=== PATIENT | male | born 1955 ===

== ENCOUNTER → 2022-09-22 10:43 | Outpatient (CLI) | payer MEDICARE, OTHER, SELFPAY ==
--- NOTE | 2022-09-22 | DI.US.S_ITS ---
PROCEDURE: US PERIPH VENOUS LOW EXTREM RT INDICATIONS: SWELLING TECHNIQUE: Real-time imaging, as well as color and pulse Doppler interrogation, were performed of the lower extremity deep veins from the inguinal ligament to the popliteal fossa. COMPARISON: None. FINDINGS: The common femoral, femoral and popliteal veins are normally compressible, and free of intraluminal thrombus. Color and pulse Doppler demonstrate normal phasic intraluminal flow. There is normal augmentation response to distal compression maneuver. Incidental note of a mildly prominent lymph node in the right inguinal region demonstrating normal reniform morphology and central fatty hilum. Uniform cortical thickness. IMPRESSION: Negative for deep venous thrombosis of the right lower extremity. Dictated by: Charly Baca M.D. on 09/22/2022 at 11:54 Approved by: Charly Baca M.D. on 09/22/2022 at 11:55
== END ==
PROVIDERS: PCP Internal Medicine; Referring Provider Orthopaedic Surgery; Visit Provider Orthopaedic Surgery
DX: M79.89 Other specified soft tissue disorders (principal)
CPT/HCPCS: 93971

== ENCOUNTER → 2022-09-26 11:59 | Outpatient (CLI) | payer MEDICARE, OTHER, SELFPAY ==
--- NOTE | 2022-09-26 | DI.US.S_ITS ---
PROCEDURE: [facility] VENOUS LOW EXTREM RT INDICATIONS: RIGHT LEG PAIN AND SWELLING TECHNIQUE: Real-time imaging, as well as color and pulse Doppler interrogation, were performed of the lower extremity deep veins from the inguinal ligament to the popliteal fossa. COMPARISON: [facility], [facility] VENOUS LOW EXTREM RT, 09/22/2022, 11:34. FINDINGS: The common femoral, femoral and popliteal veins are normally compressible, and free of intraluminal thrombus. Color and pulse Doppler demonstrate normal phasic intraluminal flow. There is normal augmentation response to distal compression maneuver. The lower calf vessels are not seen, secondary to soft tissue swelling. Multiple prominent groin lymph nodes are seen, with the largest measuring 2.3 x 0.6 x 1.1 cm. IMPRESSION: Negative for deep venous thrombosis. Dictated by: Jadon Estrada M.D. on 09/26/2022 at 11:46 Approved by: Jadon Estrada M.D. on 09/26/2022 at 11:47
== END ==
PROVIDERS: PCP Internal Medicine; Referring Provider Physician Assistant; Visit Provider Physician Assistant
DX: M79.89 Other specified soft tissue disorders (principal)
CPT/HCPCS: 93971

== ENCOUNTER → 2023-03-18 15:39 | Outpatient (CLI) | payer MEDICARE, OTHER, SELFPAY ==
--- NOTE | 2023-03-18 15:45 | DI.US.S_ITS ---
PROCEDURE: US PERIP VENOUS LOW EXTREM LT INDICATIONS: LEFT KNEE OSTEOARTHERITIS TECHNIQUE: Real-time imaging, as well as color and pulse Doppler interrogation, were performed of the lower extremity deep veins from the inguinal ligament to the popliteal fossa, with documentation of the visualized calf veins. COMPARISON: [facility], [facility] VENOUS LOW EXTREM RT, 09/26/2022, 12:09. [facility], PERIP VENOUS LOW EXTREM RT, 09/22/2022, 11:34. FINDINGS: The common femoral, femoral, popliteal, and the visualized calf veins are normally compressible, and free of intraluminal thrombus. Color and pulse Doppler demonstrate normal phasic intraluminal flow. There is normal augmentation response to distal compression maneuver. A prominent left groin lymph node is seen. 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 IMPRESSION: No findings of lower extremity deep venous thrombosis. 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 Dictated by: Jadon Estrada M.D. on 03/18/2023 at 17:11 Approved by: Jadon Estrada M.D. on 03/18/2023 at 17:12
[2023-03-18 18:36] LABS: Hematocrit 34.8 % (41-53); Hemoglobin 11.8 g/dL (13.5-17.5); Mean Corpuscular HGB Conc 33.8 % (30-36); Mean Corpuscular Hemoglobin 30.5 PG (26-34); Mean Corpuscular Volume 90.2 fL (80-100); Platelet Count 782 X10^3/uL (150-400); Red Blood Cell Count 3.86 X10^6/uL (4.5-5.9); Red Cell Distribution Width 14.9 % (11.6-14.8); White Blood Cell Count 13.3 X10^3/uL (4.5-11.0)
[2023-03-18 18:42] LABS: Add Manual Diff / Slide Review YES
[2023-03-18 18:56] LABS: C-Reactive Protein Quant 5.2 mg/dL (<1.0)
[2023-03-18 19:13] LABS: Erythrocyte Sedimentation Rate 74 MM/HR (0-15)
[2023-03-18 20:36] LABS: Anisocytosis 1+; Neutrophils Absolute Manual 9842 /uL (3000-5900); Total Cells Counted 100
== END ==
PROVIDERS: PCP Internal Medicine; Referring Provider Orthopaedic Surgery; Visit Provider Orthopaedic Surgery
DX: I77.1 Stricture of artery (principal); M17.12 Unilateral primary osteoarthritis, left knee; Z96.652 Presence of left artificial knee joint
CPT/HCPCS: 36415; 85007; 85025; 85651; 86140; 93971